=== PATIENT | male | born 1960 | race Caucasian/White ===

== ENCOUNTER 2017-11-03 06:00 | Emergency (ER) | payer OTHER ==
--- NOTE | 2017-11-03 06:52 | EDM.PDOC ---
ED HPI GENERAL MEDICAL PROBLEM - General Stated Complaint: IN BY AMB CODE BLUE Time Seen by Provider: 11/03/17 06:00 Source of Information: Reports: EMS History Limitations: Reports: Other (CPR in progress) - History of Present Illness INITIAL COMMENTS - FREE TEXT/NARRATIVE: This 57 yo male patient was brought to the ED by [facility] with CPR in progress from the [facility]. According to EMS, the patient was found in his cell hanging. CPR had been started by [facility] staff. Upon arrival the patient was in PED, CPR was continued, IV was established, 1 dose of epinephrine was administered, ET tube secured, a second round of epinephrine was administered and the patient was moved to the ambulance. When in the ambulance, EMS reports EKG demonstrated a fine v-fib, a shock was delivered, a dose of amiodarone was given, rhythm changed to PEA, and a 3rd dose of epinephrine was given as the ambulance pulled into the hospital. Upon arrival in the ED, CPR was in progress, pulse was present with chest compressions, lung sounds were clear and equal bilaterally with BVM ventilation, pupils were fixed and dilated, CPR was stopped, the patient was pulseless, and EKG rhythm was PEA. There was no spinal precautions in place. CPR was continued. The patient was given 2 additional rounds of epinephrine and 1 round of sodium bicarb. The patient remained in PEA, pupils continued to be fixed and dialated. The code was called at 0615. Onset: Today Duration: Constant ED ROS GENERAL - Review of Systems Review Of Systems: ROS reveals no pertinent complaints other than HPI. ED EXAM, CPR - Physical Exam Exam: See Below Limited By: Other (CPR in progress) General Appearance: Other Eye Exam: Bilateral Eye: Other (Pupils were fixed and dialted. The patient's right eye had a hemorage to the medial aspect. ) Ears: Normal External Exam Nose: Normal Inspection Throat/Mouth: Perioral Cyanosis Head: Atraumatic, Normocephalic Neck: Other (Ligature markes on the mid neck) Respiratory Chest: Other (Patient was intubated with lung sounds clear and equal bilaterally) Cardiovascular: CPR In Progress, Other (PEA) Departure - Departure Time of Disposition: 06:15 Disposition: 20 Condition: Critical Clinical Impression: Cardiac arrest Arrhythmia Qualifiers: Arrhythmia type: other cardiac arrhythmia Qualified Code(s): I49.8 - Other specified cardiac arrhythmias Asphyxiation by hanging Qualifiers: Encounter type: initial encounter Injury intent: undetermined intent Qualified Code(s): T71.164A - Asphyxiation due to hanging, undetermined, initial encounter - Discharge Information *PRESCRIPTION DRUG MONITORING PROGRAM REVIEWED*: Not Applicable *COPY OF PRESCRIPTION DRUG MONITORING REPORT IN PATIENT FLAVIA: Not Applicable
[2017-11-03 06:53] LABS: ANION GAP 28.9; CHLORIDE,CL 105 mmol/L (101-111); SODIUM,NA 146 mmol/L (135-145)
[2017-11-03] MEDS ORDERED: Sodium Bicarbonate 8.4% 50 MEQ/50 ML Syringe ONE (06:57)
[2017-11-03] MEDS ORDERED: EPINEPHrine 1:10,000 1 MG/10 ML Syringe ONE (06:57)
== END 2017-11-03 09:36 | disposition expired ==
LOC: EDBD → DL.ED 06:00 → EDUNIT# 06:00 → DL.ED 09:36
DX: T71.164A Asphyxiation due to hanging, undetermined, initial encounter (principal); I46.9 Cardiac arrest, cause unspecified; I49.8 Other specified cardiac arrhythmias
CPT/HCPCS: 36415; 71045; 80053; 85025; 92950; 96374; 96375; 99285